=== PATIENT | male | born 1940 | race Caucasian/White ===

== ENCOUNTER → 2020-07-15 | Outpatient (CLI) | payer MEDICARE, MEDICAID ==
[~2020-07-15] VITALS: Ht 172.7 cm; Wt 68.5 kg
[~2020-07-15] MED LIST: ACET-784 PO; ALBU8HFA IH; AMIO100T4 PO; ASPI-728 PO; BISA10SU11 PR; CARV6 PO; CHOL100018 PO; FLUT50DI2 IH; LISI-660 PO; MAGOX PO; MELA5TAB3 PO; NICO-704 TD; PANT-31 PO; SPIR25 PO; TIOT185 IH; TRAZ-252 PO
[2020-07-15 11:51] VITALS: BP 137/68
== END | disposition home or self-care (01) ==
LOC: SRCNTR 10:41
PROVIDERS: ATTEND Internal Medicine Cardiovascular Disease
DX: J44.9 Chronic obstructive pulmonary disease, unspecified (principal); I42.9 Cardiomyopathy, unspecified; I50.9 Heart failure, unspecified; E78.5 Hyperlipidemia, unspecified; F20.9 Schizophrenia, unspecified; Z79.899 Other long term (current) drug therapy
CPT/HCPCS: 93005; G0463